=== PATIENT | female | born 1995 | race Caucasian/White ===

== ENCOUNTER 2020-09-05 23:31 | Emergency (ER) | payer SELFPAY ==
[~2020-09-05] VITALS: Ht 162.6 cm; Wt 113.0 kg
[2020-09-06] MEDS ORDERED: ZOFRAN4 MG/TAB PO (01:24)
[2020-09-06] MEDS ORDERED: AMOXICILLIN875 MG PO (01:24)
[2020-09-06 01:32] VITALS: BP 131/68
== END 2020-09-06 01:32 | disposition home or self-care (01) | DRG 153 ==
LOC: ED 23:31
DX: J02.9 Acute pharyngitis, unspecified (principal); Z20.822 Contact with and (suspected) exposure to COVID-19